=== PATIENT | male | born 1985 ===

== ENCOUNTER 2017-08-04 12:52 | Emergency (ER) | payer OTHER ==
[2017-08-04 12:56] VITALS: O2SAT 98
--- NOTE | 2017-08-04 13:10 | EDPHY ---
H & P Stated Complaint: productive cough,body aches, flu-like sxs x 5 days Time Seen by Provider: 08/04/17 13:10 HPI/ROS: CHIEF COMPLAINT: Fever, cough, chills, nausea HISTORY OF PRESENT ILLNESS: The patient presents to the ED with a 5 day history of fever, cough, chills and nausea. The patient denies significant past medical history. The patient denies any antibiotic use. The patient denies travel outside the [place]. The patient reports his symptoms are moderate in nature. The patient was seen in urgent care referred to the ED for further evaluation. REVIEW OF SYSTEMS: A comprehensive 10 point review of systems is otherwise negative aside from elements mentioned in the history of present illness. Source: Patient - Personal History Current Tetanus Diphtheria and Acellular Pertussis (TDAP): Yes - Medical/Surgical History Other PMH: healthy - Social History Smoking Status: Never smoked - Physical Exam Exam: General Appearance: Alert, no distress Eyes: Pupils equal and round no pallor or injection ENT, Mouth: Mucous membranes moist Respiratory: There are no retractions, lungs are clear to auscultation Cardiovascular: Regular rate and rhythm Gastrointestinal: Abdomen is soft and nontender, no masses, bowel sounds normal Neurological: A&O, normal motor function, normal sensory exam, normal cranial nerves Skin: Warm and dry, no rashes Musculoskeletal: Neck is supple nontender Extremities: symmetrical, full range of motion Constitutional: Initial Vital Signs Temperature (C) 36.6 C 08/04/17 12:53 Heart Rate 69 08/04/17 12:53 Respiratory Rate 18 08/04/17 12:53 Blood Pressure 113/68 08/04/17 12:53 O2 Sat (%) 98 08/04/17 12:53 O2 Delivery Mode Room Air Allergies/Adverse Reactions: No Known Allergies Allergy (Unverified 08/04/17 12:56) Home Medications: Medication Instructions Recorded Albuterol [Ventolin Hfa Inhaler] 2 puffs IH QID PRN #1 mdi 08/04/17 Ondansetron Odt [Zofran Odt] 4 mg PO Q4PRN PRN #20 tab 08/04/17 levOFLOXACIN [Levaquin] 500 mg PO DAILY #10 tab 08/04/17 Medical Decision Making - Diagnostics Imaging Results: Imaging Impressions Chest X-Ray 08/04/17 13:21 Impression: Bronchitis with streaky right basilar opacities that could be related to atelectasis or early pneumonia. ED Course/Re-evaluation: The patient presents to the ED with complaints of fever, cough and nausea. The patient's chest x-ray does demonstrate the possibility of a subtle pneumonia. The patient received a DuoNeb. He received Zofran for nausea. The patient's respiratory pathogen panel is negative for viral pathogens. The patient will be treated as an outpatient with a prescription for Levaquin, albuterol and Zofran as needed for nausea. The patient is advised to return to the ED for markedly worsening symptoms or other concerns. The patient's vital signs are stable. He has no significant comorbidities and appears appropriate for outpatient therapy. Differential Diagnosis: Differential diagnosis considered includes asthma, bronchitis, pneumonia, influenza - Data Points Medications Given: Discontinued Medications Albuterol/Ipratropium (Duoneb) 3 ml IH EDNOW ONE Stop: 08/04/17 13:23 Last Admin: 08/04/17 13:53 Dose: 3 ml Ondansetron HCl (Zofran Odt) 4 mg PO EDNOW ONE Stop: 08/04/17 13:23 Last Admin: 08/04/17 13:54 Dose: 4 mg Departure - Departure Disposition: Home, Routine, Self-Care Clinical Impression: Pneumonia Condition: Good Instructions: Bacterial Pneumonia (ED) Additional Instructions: 1. Take antibiotics as directed for next 10 days for possible pneumonia 2. Use albuterol inhaler up to every 4 hours as needed for cough and difficulty breathing. 3. Tylenol and ibuprofen as needed for pain and fever. 4. Zofran as needed for nausea. 5. Return to the ED for markedly worsening symptoms, difficulty breathing or other concerns. 6. You have been given the telephone number for Dr. Shin on-call primary care provider. Please schedule a follow-up appointment with your primary care provider or her for a follow-up visit in the next week. Referrals: Clarisa Shin MD [Medical Doctor] - As per Instructions
[2017-08-04] MEDS ORDERED: IPRATROPIUM/ALBUTEROL 3 ML DEYVIAL IH ONE (13:22)
[2017-08-04] MEDS ORDERED: ONDANSETRON DISINTEGRATING 4 MG TAB PO ONE ×2 (13:22→16:41)
[2017-08-04 16:22] VITALS: RESP 16; TEMP 98.4
[2017-08-04] MEDS ORDERED: IBUPROFEN 600 MG TAB PO ONE (16:41)
[2017-08-04 17:02] LABS: % IMMATURE GRANULYOCYTES 0.6 % (0.0-1.1); ABSOLUTE IMMATURE GRANULOCYTES 0.07 10^3/uL (0.00-0.10); ADD DIFF? NO; ADD MORPH? NO; ADD SCAN? NO; ATYPICAL LYMPHOCYTE FLAG 0 (0-99); FRAGMENT RBC FLAG 0 (0-99); HEMATOCRIT 51.3 % (40.0-51.0); HEMOGLOBIN 17.2 g/dL (13.7-17.5); LEFT SHIFT FLG 40 (0-99); LIPEMIA HEMOLYSIS FLAG 80 (0-99); MEAN CELL HEMOGLOBIN 28.2 pg (27.9-34.1); MEAN CELL HEMOGLOBIN CONCENTR. 33.5 g/dL (32.4-36.7); MEAN PLATELET VOLUME 9.9 fL (8.7-11.7); PLATELET CLUMPS FLAG 0 (0-99); PLATELET COUNT 240 10^3/uL (150-400); RED BLOOD CELL COUNT 6.11 10^6/uL (4.40-6.38)
[2017-08-04 17:34] VITALS: BP 110/81; PULSE 85
[2017-08-04 17:36] LABS: ANION GAP 21 mEq/L (8-16); CALCIUM 10.4 mg/dL (8.5-10.4); CARBON DIOXIDE 22 mEq/l (22-31); CHLORIDE 97 mEq/L (97-110); CREATININE 1.6 mg/dL (0.7-1.3); GLOMERULAR FILTRATION RATE 51; GLUCOSE 104 mg/dL (70-100); POTASSIUM 4.5 mEq/L (3.5-5.2); SODIUM 140 mEq/L (134-144)
== END 2017-08-04 17:32 | disposition home or self-care (01) ==
DX: J18.9 Pneumonia, unspecified organism (principal)